=== PATIENT | male | born 1970 | race Caucasian/White ===

== ENCOUNTER 2021-01-16 10:03 | Emergency (ER) | payer OTHER ==
--- NOTE | 2021-01-16 12:08 | ED Physician Documentation ---
History of Present Illness - Stated complaint Stated Complaint: DIZZY - Chief complaint Chief Complaint: Neuro - Additonal information Additional information: 58-year-old male presents the emergency department for evaluation of sudden onset vertigo. He reports waking up in bed this morning and having a very severe sensation of the room spinning it lasted about 15 seconds. He has had this similarly in the past once or twice but has not had formal evaluation or diagnosis of his vertigo. He does report that it is noted often with rotating his head or turning positions. This gentleman has a history of prediabetes and was recently started on Metformin and lisinopril for treatment of this. He has also had a stress test and echocardiogram within the last 6 months completed at [facility] that he reported as normal to this provider. Gentleman denies any chest pain or shortness of air. No vomiting no abdominal pain or diarrhea. No unilateral leg swelling. He is not a smoker. Review of Systems Constitutional: denies: Fever, Chills Eyes: denies: Loss of vision, Decreased vision, Other (nystagmus) Ears: reports: Reviewed and negative Nose: reports: Reviewed and negative Throat: reports: Reviewed and negative Cardiac: reports: Reviewed and negative Respiratory: reports: Reviewed and negative GI: reports: Reviewed and negative : reports: Reviewed and negative Skin: reports: Reviewed and negative Musculoskeletal: reports: Reviewed and negative Neurologic: reports: Other (vertigo). denies: Syncope, Seizure, Headache Psychiatric: reports: Reviewed and negative Endocrine: reports: Reviewed and negative PD PAST MEDICAL HISTORY - Past Medical History Past Medical History: Yes Cardiovascular: Hypertension Respiratory: None Neuro: None Endocrine/Autoimmune: Type 2 diabetes GI: GERD : None HEENT: None Psych: None Musculoskeletal: None Derm: None - Past Surgical History Past Surgical History: No - Present Medications Home Medications: Ambulatory Orders Medication Instructions Recorded Confirmed Meclizine HCl [Antivert] 1 tablet PO Q6H PRN #30 tab 01/16/21 Omeprazole 40 mg PO 01/16/21 lisinopriL [Lisinopril] 10 mg PO 01/16/21 metFORMIN [Glucophage] 500 mg PO DAILY 01/16/21 01/16/21 - Allergies Allergies/Adverse Reactions: Allergies Allergy/AdvReac Type Severity Reaction Status Date / Time bupropion [From Wellbutrin] Allergy Hives Verified 05/27/21 10:19 - Social History Does the pt smoke?: No Smoking Status: Former smoker Does the pt drink ETOH?: Yes Does the pt have substance abuse?: No - Immunizations Immunizations are current?: Yes - POLST Patient has POLST: No PD ED PE EXPANDED - General General: Alert, No acute distress, Well developed/nourished, Other (obese) - HEENT HEENT: Atraumatic, PERRL, Ears normal, Pharynx normal - Eyes Eyes: PERRL, Normal accommodation, Other (Bilateral lateral nystagmus during [place]-Hallpike procedure. Lasted 10 to 15 seconds before abating.) - Cardiac Cardiac: Regular Rate, Radial strong equal, Pedal strong equal, Cap refill < 2 sec. No: Murmur Present - Respiratory Respiratory: Clear to ausultation franck. No: Distress, Labored - Abdomen Abdomen: Normal Bowel sounds. No: Tender to palpation - Derm Derm: Normal color, Warm and dry. No: Petecchiae, Purpura - Extremities Extremities: Normal. No: Deformity, Tenderness - Neuro Neuro: Alert and Oriented X 3, CNII-XII intact, Nystagmus (+ berenice mcclain pike bilaterally), Normal gait, Normal finger nose, Normal speech Results - Vitals Vitals: Vital Signs - 24 hr 01/16/21 01/16/21 10:13 10:59 Temperature 35.9 C L 36.9 C Heart Rate 77 74 Respiratory 16 Rate Blood Pressure 136/83 H 120/78 O2 Saturation 97 Oxygen O2 Source Room air - EKG (time done) 1200 Rate: Rate (enter#) (69) Rhythm: NSR [place]: Normal Intervals: Normal [place] QRS: Normal Ischemia: Normal ST segments Compare to prior EKG: Old EKG unavailable Computer interpretation: Agree with computer - Labs Labs: Laboratory Tests 01/16/21 01/16/21 01/16/21 12:15 12:15 12:15 WBC 7.9 RBC 5.06 Hgb 14.5 Hct 43.4 MCV 85.8 MCH 28.7 MCHC 33.4 RDW 13.5 Plt Count 322 MPV 9.9 Neut # (Auto) 4.4 Lymph # (Auto) 2.7 [place] # (Auto) 0.7 Eos # (Auto) 0.1 Baso # (Auto) 0.0 Absolute Nucleated RBC 0.00 Nucleated RBC % 0.0 Sodium 135 Potassium 4.4 Chloride 99 L Carbon Dioxide 26 Anion Gap 10.0 BUN 18 Creatinine 1.0 Estimated GFR (MDRD) 79 L Glucose 94 Calcium 9.9 Total Bilirubin 0.7 AST 27 ALT 37 Alkaline Phosphatase 56 Troponin I High Sens 2.9 Total Protein 8.5 H Albumin 4.6 Globulin 3.9 Albumin/Globulin Ratio 1.2 Lipase 31 - Rads (name of study) CXR Radiology: Final report received (No acute cardiopulmonary process) PD MEDICAL DECISION MAKING - ED course Complexity details: reviewed results, re-evaluated patient, considered differential, d/w patient ED course: 50-year-old male presents emergency department for evaluation of positional dizziness that he noted this a.m. when he woke up. He has had this 2-3 times similarly in the past. Typically exacerbated when laying flat or turning his head. Today in the emergency department he did have a Berenice-Hallpike that was positive on both sides with brief but fast beating lateral nystagmus. Here in the emergency department we undertook screening EKG which was nonischemic. Screening CBC electrolytes and high-sensitivity troponin are all without worrisome findings. Chest x-ray unremarkable. Vital signs without acute worrisome abnormalities. His neurological exam was negative for any focal findings. He had a normal cerebellar exam and gait. Negative hints exam. Exam and history is consistent with peripheral vertigo. Patient was taught the Michel maneuver to use at home. We will also write a prescription for meclizine. He was advised close follow-up with his primary care provider as if this remains a persistent problem he may benefit from vestibular rehabilitation. Departure - Departure Disposition: 01 Home, Self Care Clinical Impression: Benign paroxysmal positional vertigo due to bilateral vestibular disorder Condition: Stable Record reviewed to determine appropriate education?: Yes Instructions: Vertigo Paroxysmal Positional Prescriptions: Meclizine HCl [Antivert] 1 tablet PO Q6H PRN #30 tab PRN Reason: Vertigo Comments: Ankush I hope that you are feeling better soon. You were seen in the emergency department today for vertigo or dizziness. As we discussed we are able to make you feel dizzy by turning your head and changing positions. Your exam is entirely consistent with positional and peripheral vertigo. When you do have dizziness at home I do recommend that you use the Michel maneuver as discussed. You may also try the meclizine tablets to help with the dizziness. Your screening EKG, chest x-ray and electrolytes today were all essentially unremarkable. Most episodes of positional vertigo resolve with time however if your wrist does not resolve or becomes more frequent you may benefit from vestibular rehabilitation. Please discuss this ED visit with your primary care doctor as soon as possible. Please return to the emergency department for slurred speech, facial droop arm or leg weakness.
[2021-01-16 12:21] LABS: BASOPHILS % (AUTO) 0.5 %; EOSINOPHILS # (AUTO) 0.1 10^3/uL (0.0-0.7); EOSINOPHILS % (AUTO) 1.6 %; HCT - HEMATOCRIT 43.4 % (42.0-52.0); HGB - HEMOGLOBIN 14.5 g/dL (14.0-18.0); LYMPHOCYTES # (AUTO) 2.7 10^3/uL (1.5-3.5); LYMPHOCYTES % (AUTO) 33.8 %; MEAN CORPUSCULAR HEMOGLOBIN 28.7 pg (27.0-31.0); MEAN CORPUSCULAR HGB CONC 33.4 g/dL (32.0-36.0); MEAN CORPUSCULAR VOLUME 85.8 fL (80.0-94.0); MEAN PLATELET VOLUME 9.9 fL (7.4-11.4); MONOCYTES # (AUTO) 0.7 10^3/uL (0.0-1.0); MONOCYTES % (AUTO) 8.2 %; NEUTROPHILS # (AUTO) 4.4 10^3/uL (1.5-6.6); NEUTROPHILS % (AUTO) 55.8 %; PLT - PLATELET COUNT 322 10^3/uL (130-450); RED BLOOD COUNT 5.06 10^6/uL (4.70-6.10); RED CELL DISTRIBUTION WIDTH 13.5 % (12.0-15.0); WHITE BLOOD COUNT 7.9 x10^3/uL (4.8-10.8)
--- NOTE | 2021-01-16 12:30 | XRAY Report ---
PROCEDURE: Chest 1 View X-Ray INDICATIONS: Chest pain TECHNIQUE: One view of the chest was acquired. COMPARISON: None FINDINGS: Surgical changes and devices: None. Lungs and pleura: No pleural effusions or pneumothorax. Lungs are clear. Mediastinum: Mediastinal contours appear normal. Heart size is normal. Bones and chest wall: No suspicious bony lesions. Overlying soft tissues appear unremarkable. IMPRESSION: No acute cardiopulmonary process demonstrated radiographically. Reviewed by: Jesu Flynn MD on 01/16/2021 12:29 PM PDT Approved by: Jesu Flynn MD on 01/16/2021 12:29 PM PDT Station ID: [id number]
[2021-01-16] MEDS ORDERED: MECLIZINE 12.5 MG TABLET PO STA (12:33)
[2021-01-16 12:39] LABS: ALBUMIN 4.6 g/dL (3.2-5.5); ALBUMIN/GLOBULIN RATIO 1.2 (1.0-2.2); BILIRUBIN,TOTAL 0.7 mg/dL (0.2-1.0); CALCIUM 9.9 mg/dL (8.5-10.3); POTASSIUM 4.4 mmol/L (3.5-5.0); TOTAL PROTEIN 8.5 g/dL (6.7-8.2)
[2021-01-16 13:35] VITALS: BP 120/70
== END 2021-01-16 13:34 | disposition home or self-care (01) ==
LOC: ED 10:03
DX: H81.13 Benign paroxysmal vertigo, bilateral (principal); R73.03 Prediabetes; Z79.84 Long term (current) use of oral hypoglycemic drugs; Z87.891 Personal history of nicotine dependence
CPT/HCPCS: 36415; 71045; 80053; 83690; 84484; 85025; 93005; 99283; 99284; A9270

== ENCOUNTER 2021-03-25 12:52 | Outpatient (CLI) | payer OTHER ==
--- NOTE | 2021-03-25 17:21 | XRAY Report ---
PROCEDURE: Lumbar Spine Complete INDICATIONS: LUMBAGO WITH SCIATICA, BACK PX, LUMBOSACRAL, CHRON TECHNIQUE: 5 views of the lumbar spine were acquired. COMPARISON: None. FINDINGS: Bones: 5 [id number] vertebrae are present. Trace retrolisthesis L2 on 3, L4 on 5 and L5 on S1.. No vertebral body compression fractures. No suspicious bony lesions. Oblique images demonstrate no pars defects and mild facet sclerosis on the left at L4-5 and L5-S1. Soft tissues: Overlying bowel gas pattern is normal. No suspicious soft tissue calcifications. IMPRESSION: Mild facet degeneration resulting in mild multilevel spondylolisthesis. Reviewed by: Kendra Ray MD on 03/25/2021 5:20 PM PDT Approved by: Kendra Ray MD on 03/25/2021 5:20 PM PDT Station ID: [id number]
== END 2021-03-25 12:53 | disposition home or self-care (01) ==
LOC: DI.S 12:52
PROVIDERS: ATTEND Physician Assistant
DX: M43.16 Spondylolisthesis, lumbar region (principal); M43.17 Spondylolisthesis, lumbosacral region; M47.816 Spondylosis without myelopathy or radiculopathy, lumbar region

== ENCOUNTER 2021-06-10 12:39 | Day surgery (SDC) | payer OTHER ==
[2021-06-10] MEDS ORDERED: LACTATED RINGERS 1,000 ML IV ONE (13:17)
--- NOTE | 2021-06-10 13:29 | ANESTHESIA ---
Pre-Anesthesia VS, & Labs - Diagnosis GERD - Procedure EGD Vital Signs: Temp Pulse Resp BP Pulse Ox 36.4 C L 70 14 139/83 H 100 06/10/21 12:47 06/10/21 12:47 06/10/21 12:47 06/10/21 12:47 06/10/21 12:47 Height: 5 ft 10 in Weight (kg): 147 kg Body Mass Index: 46.5 BMI Classification: Morbidly Obese - NPO >8 hours - Lab Results Current Lab Results: Laboratory Tests 06/10/21 13:06: POC Whole Bld Glucose 79 Home Medications and Allergies Home Medications: Ambulatory Orders Acetaminophen [Tylenol] 650 mg PO Q6H PRN 06/03/21 Omeprazole 40 mg PO DAILY 01/16/21 lisinopriL [Lisinopril] 10 mg PO DAILY 01/16/21 metFORMIN [Glucophage] 1,000 mg PO DAILY 01/16/21 Acetaminophen [Tylenol] 650 mg PO Q6H PRN 06/03/21 Allergies/Adverse Reactions: Allergies Allergy/AdvReac Type Severity Reaction Status Date / Time bupropion [From Wellbutrin] Allergy Hives Verified 01/16/21 10:19 Anes History & Medical History - Anesthetic History Anesthesia Complications: reports: No previous complications - Medical History Cardiovascular: reports: Hypertension Pulmonary: reports: Sleep apnea, CPAP use Gastrointestinal: reports: GERD Urinary: reports: None Neuro: reports: None Musculoskeletal: reports: Osteoarthritis, Gout Endocrine/Autoimmune: reports: Other Blood Disorders: reports: None Skin: reports: None Smoking Status: Former smoker History of Cancer?: No Exam General: Alert Dental: WNL Mouth Opening: Greater than 4 Fingerbreadths Neck Mobility: Normal Mallampati classification: I Respiratory: Lungs clear Cardiovascular: Regular rate, Normal S1, Normal S2 Plan Anesthesia Type: Total IV Consent for Procedure(s) Verified and Reviewed: Yes Code Status: Attempt Resuscitation ASA classification: 3-Severe systemic disease Is this case an emergency?: No
[2021-06-10] MEDS ORDERED: LIDO GARGLE 30 ML BOTTLE ONE (13:31)
[2021-06-10] MEDS ORDERED: LIDOCAINE-MPF 2% 5 ML VIAL ONE (13:32)
[2021-06-10] MEDS ORDERED: PROPOFOL 500 MG/50 ML 500 MG/50 ML VIAL ONE (13:33)
[2021-06-10] MEDS ORDERED: KETAMINE 500 MG/10 ML VIAL ONE (13:43)
[2021-06-10] MEDS ORDERED: LACTATED RINGERS 500 ML IV ONE (13:59)
[2021-06-10 14:10] VITALS: BP 121/76
--- NOTE | 2021-06-10 14:17 | ANESTHESIA POST OP EVALUATION ---
Anesthesia Post Eval - Post Anesthesia Eval Vitals: Last Vital Signs Temp 36.4 C L 06/10/21 14:09 Pulse 73 06/10/21 14:09 Resp 14 06/10/21 14:09 BP 121/76 06/10/21 14:09 Pulse Ox 96 06/10/21 14:09 CV Function Including HR & BP: Stable Pain Control: Satisfactory Nausea & Vomiting: Negative Mental Status: Baseline Respiratory Status: Airway Patent Hydration Status: Satisfactory Anesthesia Complications: None
== END 2021-06-10 12:40 | disposition home or self-care (01) ==
LOC: SDS 12:39
PROVIDERS: ATTEND Surgery
PROC: 0DB68ZX Excision of Stomach, Via Natural or Artificial Opening Endoscopic, Diagnostic (ICD-10-PCS; 2021-06-10)
PROC: 0DB58ZX Excision of Esophagus, Via Natural or Artificial Opening Endoscopic, Diagnostic (ICD-10-PCS; 2021-06-10)
PROC: 0DB98ZX Excision of Duodenum, Via Natural or Artificial Opening Endoscopic, Diagnostic (ICD-10-PCS; principal; 2021-06-10 13:45)
DX: K21.9 Gastro-esophageal reflux disease without esophagitis (principal); R07.89 Other chest pain; G47.30 Sleep apnea, unspecified; I10 Essential (primary) hypertension; R73.9 Hyperglycemia, unspecified; M54.9 Dorsalgia, unspecified; R11.0 Nausea; E66.01 Morbid (severe) obesity due to excess calories; Z68.42 Body mass index [BMI] 45.0-49.9, adult; Z87.891 Personal history of nicotine dependence; Z79.84 Long term (current) use of oral hypoglycemic drugs
CPT/HCPCS: 43239; A9270; J7120

== ENCOUNTER 2021-06-30 08:00 | Outpatient (CLI) | payer OTHER | END 2021-06-30 23:59 | disposition home or self-care (01) | LOC: LAB.R 08:00 | PROVIDERS: ATTEND Physician Assistant Medical | DX: R21 Rash and other nonspecific skin eruption (principal) | CPT/HCPCS: 81599; 87070; 87205; 87254; 87255 ==

== ENCOUNTER 2021-07-05 07:05 | Outpatient (CLI) | payer OTHER ==
[2021-07-05 07:52] LABS: BASOPHILS # (AUTO) 0.1 10^3/uL (0.0-0.1); BASOPHILS % (AUTO) 0.8 %; EOSINOPHILS # (AUTO) 0.2 10^3/uL (0.0-0.7); EOSINOPHILS % (AUTO) 1.9 %; HCT - HEMATOCRIT 42.6 % (42.0-52.0); HGB - HEMOGLOBIN 13.8 g/dL (14.0-18.0); LYMPHOCYTES % (AUTO) 37.5 %; MEAN CORPUSCULAR HEMOGLOBIN 28.2 pg (27.0-31.0); MEAN CORPUSCULAR HGB CONC 32.4 g/dL (32.0-36.0); MEAN CORPUSCULAR VOLUME 86.9 fL (80.0-94.0); MEAN PLATELET VOLUME 9.7 fL (7.4-11.4); MONOCYTES # (AUTO) 0.5 10^3/uL (0.0-1.0); MONOCYTES % (AUTO) 6.8 %; NEUTROPHILS # (AUTO) 4.2 10^3/uL (1.5-6.6); NEUTROPHILS % (AUTO) 52.5 %; PLT - PLATELET COUNT 352 10^3/uL (130-450); RED CELL DISTRIBUTION WIDTH 12.6 % (12.0-15.0)
[2021-07-05 08:11] LABS: ALBUMIN 4.5 g/dL (3.2-5.5); ALBUMIN/GLOBULIN RATIO 1.2 (1.0-2.2); ALKALINE PHOSPHATASE 60 IU/L (42-121); ALT ALANINE AMINOTRANSFERASE 36 IU/L (10-60); AST ASPARTATE AMINOTRANSFERASE 26 IU/L (10-42); BILIRUBIN,TOTAL 0.4 mg/dL (0.2-1.0); BUN - BLOOD UREA NITROGEN 17 mg/dL (6-20); CALCIUM 9.7 mg/dL (8.5-10.3); CARBON DIOXIDE - CO2 25 mmol/L (21-32); CHLORIDE 104 mmol/L (101-111); CHOL/HDL RATIO 4.2 (<5.0); CHOLESTEROL 155 mg/dL; CREATININE 1.2 mg/dL (0.6-1.2); GFR - MDRD 64 (>89); GLUCOSE 111 mg/dL (70-100); HDL CHOLESTEROL 37 mg/dL; LDL CHOLESTEROL,CALCULATED 100 mg/dL; LDL/HDL RATIO 2.7 (<3.6); POTASSIUM 4.4 mmol/L (3.5-5.0); SODIUM 141 mmol/L (135-145); TOTAL PROTEIN 8.3 g/dL (6.7-8.2); TRIGLYCERIDES 91 mg/dL; VLDL CHOLESTEROL 18 mg/dL
[2021-07-05 12:31] LABS: ESTIMATED AVERAGE GLUCOSE 117 mg/dL (70-100); HEMOGLOBIN A1c% 5.7 % (4.27-6.07)
== END 2021-07-05 07:06 | disposition home or self-care (01) ==
LOC: LAB 07:05
PROVIDERS: ATTEND Internal Medicine
DX: I10 Essential (primary) hypertension (principal); Z13.220 Encounter for screening for lipoid disorders; R73.01 Impaired fasting glucose; Z12.5 Encounter for screening for malignant neoplasm of prostate
CPT/HCPCS: 36415; 80053; 80061; 83036; 83721; 84153; 85025

== ENCOUNTER 2021-08-05 11:57 | Emergency (ER) | payer OTHER | END 2021-08-05 14:20 | disposition left against medical advice (07) | LOC: ED 11:57 | DX: Z53.21 Procedure and treatment not carried out due to patient leaving prior to being seen by health care provider (principal) ==

== ENCOUNTER 2021-08-05 15:30 | Outpatient (CLI) | payer OTHER | END 2021-08-05 23:59 | disposition home or self-care (01) | LOC: LAB.N 15:30 | PROVIDERS: ATTEND Family Medicine | DX: U07.1 COVID-19 (principal) ==

== ENCOUNTER 2021-08-28 08:23 | Outpatient (CLI) | payer OTHER ==
--- NOTE | 2021-08-28 09:22 | SLEEP CARE CONSULTATION ---
Information from patient questionnaire entered by Jossie Yarbrough MA. I have reviewed and concur with the information entered by Jossie Yarbrough MA. This document represents the service I personally performed and the decisions made by , Dorina Delcid ARNP. History of Present Illness Service Date and Time: 08/28/2021 0823 Reason for Visit: New patient, Previously diagnosed sleep apnea, sleep apnea on CPAP therapy, Other (SHORT SLEEP TIMES) Chief Complaint: reports: Other (Short sleep times) Date of Onset: 3 YEARS Usual bedtime: 1999 -2099 Time it takes to fall asleep: MINUTES Snores at night: Yes (not when using device) Observed to quit breathing while asleep: Yes Sleeps alone due to snoring: No Number of times waking at night: RARELY Reasons for waking at night: reports: Pain Toss, Turn, or Twitch while sleeping: Yes Recalls having dreams: No Usually gets out of bed at: 0200 -0300 Feels refreshed in the morning: Yes (its normal, not sure) Morning headache: No Sleepy or fatigued during the day: No Ever fallen asleep while driving: Yes Takes day naps: Yes (SOMETIMES) Dreams during day naps: No Prior sleep studies: Yes Year and Where: 2006? [place] Type of Sleep Study: Polysomnography Additional HPI information: MARLENE MCCOLLUM was previously diagnosed to have unknown, AHI unknown, sleep apnea- hypopnea syndrome and comes in today to establish care for CPAP therapy. - Parasomnia Symptoms Ever been unable to move upon waking from sleep: No Walks in sleep: No Talks in sleep: No Ever acted out dreams in sleep: No Ever felt weak in the knees when startled or emotional: No Bothered by creepy, crawly, restless sensations in legs: No Problems with memory or concentration: No CPAP Compliance Data - Data Reviewed with Patient Average duration of nightly device use: 6 hours 33 minutes Compliance rate %: 98.9 Current pressure setting (cmH2O): 10 Compliance data discussion: He is using a RemStar plus CPAP machine that is 6-7 years old. He uses nasal pillows mask generic of ResHackSurfer AirFit P10. He does have a backup headgear but not mask cushion. He states after he started using the CPAP he had trouble with the financial aspect of paying off his device. He stopped using a [employer] and is getting his supplies online mostly. His Remstar plus did not supply the current residual AHI. Subjective Missed days of use due to: reports: other (power outage) Patient concerns: denies: aerophagia, mask discomfort, air blowing in eyes, mask leak noise, condensation in mask/hose, nasal congestion, dry mouth, nose, throat, epistaxis, other Observed to snore while using device: No Current pressure setting perceived as: comfortable On therapy, patient: reports: sleeping better, awakening more refreshed, being more awake and alert during the day, more rested overall. 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 Patient is and lives in [place]. Cigarettes per day (20/pack): 20 Years of smokin Quit date: 2014 Smoking Pack Years: 30.0 Alcohol use: Yes Alcohol amount and frequency: occassion Caffeine use: Yes Caffeine amount and frequency: 1 x daily Family History Family history of sleep disordered breathing: No Allergies and Home Medications Known drug allergies: Yes (Welbutrin) Drug allergies reviewed: Yes Home medication list reviewed: Yes Allergy and home medication list: Lisinopril Review of Systems Cardiovascular: denies: high blood pressure Respiratory: denies: wheeze Gastrointestinal: denies: heartburn Neurological: denies: gait or balance problems Psychiatric: reports: depression Ear/Nose/Throat: reports: nasal congestion, sinus problems, nose bleeds Musculoskeletal: reports: joint pain, neck pain, back pain. denies: joint swelling Physical Exam Vital signs obtained and entered by: Jessika YARBROUGH CMA AAWINNIE Blood Pressure: 133/82 (left ) Cuff size: wrist Heart Rate: 76 O2 Saturation: 97 (with paper) Height: 5 ft 10 in Weight: 320 lb (with clothes boots) Body Mass Index: 45.9 BMI Classification: Morbidly Obese Heart: regular rate and rhythm Lungs: clear bilaterally Impression and Plan 1. Obstructive Sleep Apnea-Hypopnea Syndrome, unknown, with good treatment compliance and unknown apnea control. On CPAP therapy, the patient has better sleep quality and is more rested overall. Patient states he was he put him on a CPAP with him 45 minutes of his in lab study starting. He has been obtaining his supplies online. He had more issues with not being able to sleep for as long as he used to and comes in just for a checkup to see how he is doing. He was unable to obtain his last sleep study from [place] because it was done he thinks it about 2006. We will need to obtain a sleep study to verify his diagnosis and severity of his sleep apnea. Patient also has a machine that is 67 years old. It is a [employer] REMstar plus that he did check with them and they told him the device was not on the recall. He would like to update his device. We will start with a sleep study and then we can update his device. Patient voiced understanding and agreement with this plan. Patient's apnea severity and rationale for treatment to reduce apnea, improve sleep quality and reduce cardiovascular and cerebrovascular events was reviewed. I also reviewed the benefit of consistent device use of CPAP for hypertension, arrhythmia, gastric reflux and depression. Patient was encouraged to lose weight for their overall health and to reduce apneas. * Continue auto CPAP pressure at 10 cmH2O * Polysomnography/HST to verify diagnosis * Notify me if snoring with mask or feeling that the pressure is too much or too little * Attempt to lose weight * Call this office if any problems using CPAP * Return for follow up after sleep study completed, or sooner if concerns arise Counseling Topics: Spare mask, Weight loss health impact Visit Type: In Office Time Spent with Patient (minutes): 35 Provider Statement: I spent 100% of the Face to Face Visit with the patient with greater than 50% spent counseling the patient and coordination of care.
[2021-08-28 09:23] VITALS: BP 133/82
== END 2021-08-28 08:24 | disposition home or self-care (01) ==
LOC: SC 08:23
PROVIDERS: ATTEND Nurse Practitioner Family
DX: G47.33 Obstructive sleep apnea (adult) (pediatric) (principal); E66.01 Morbid (severe) obesity due to excess calories; Z68.42 Body mass index [BMI] 45.0-49.9, adult
CPT/HCPCS: 99203; 99212

== ENCOUNTER 2021-10-07 07:39 | Outpatient (CLI) | payer OTHER ==
--- NOTE | 2021-10-07 16:40 | XRAY Report ---
PROCEDURE: Knee 4 View RT INDICATIONS: RIGHT KNEE PAIN TECHNIQUE: 4 views of the right knee(s) were acquired. COMPARISON: None. FINDINGS: Bones: No fractures or dislocations. No suspicious bony lesions. There is moderate tricompartmental periarticular osteophyte formation. Soft tissues: No joint effusion. No suspicious soft tissue troy cifications. IMPRESSION: Osteoarthritis. No acute fracture. No osseous lesion. If symptoms and/or clinical suspic ion for pathology continue, further assessment with repeat plain films, or advanced imaging (e.g., CT , MRI, or bone scan) is recommended for further assessment. Reviewed by: Brittany Cabrera MD on 10/07/2021 4:38 PM PST Approved by: Brittany Cabrera MD on 10/07/2021 4:38 PM PST Station ID: [id number]
== END 2021-10-07 07:40 | disposition home or self-care (01) ==
LOC: DI.WOS 07:39
PROVIDERS: ATTEND Physician Assistant
DX: M17.11 Unilateral primary osteoarthritis, right knee (principal)

== ENCOUNTER 2022-02-12 16:54 | Emergency (ER) | payer OTHER ==
--- NOTE | 2022-02-12 17:12 | ED Physician Documentation ---
PD HPI CHEST PAIN - Stated complaint Stated Complaint: chest pain - Chief complaint Chief Complaint: Cardiac - History obtained from History obtained from: Patient - History of Present Illness Timing - onset: How many hours ago (4), Today Timing - onset during: Light activity (He states he was walking up a slight incline and felt his heart started to beat fast and he felt slightly lightheaded. No chest pain per se. This lasted for few minutes and then resolved.) Timing - duration: Minutes Timing - details: Abrupt onset, Now resolved Quality: Tightness Location: Left chest Radiation: No: Jaw, Neck Worsened by: No: Inspiration, Movement Associated symptoms: Palpitations (felt that his heart beat was faster and pounding.) Similar symptoms before: No diagnosis (He states he has had episodes of chest pain in the past with normal ER evaluations and subsequently has had echocardiogram and stress echo with normal findings. Previous diagnosis costochondritis type symptoms.) Recently seen: Clinic (went to [facility] with normal ECG. Referred to ER.) Review of Systems Constitutional: denies: Fever Nose: denies: Rhinorrhea / runny nose, Congestion Throat: denies: Sore throat Respiratory: denies: Cough GI: denies: Abdominal Pain, Nausea, Vomiting Neurologic: denies: Near syncope, Syncope, Altered mental status PD PAST MEDICAL HISTORY - Past Medical History Cardiovascular: Hypertension Respiratory: None Neuro: None Endocrine/Autoimmune: Type 2 diabetes GI: GERD : None HEENT: None Psych: None Musculoskeletal: None Derm: None - Past Surgical History Past Surgical History: No - Present Medications Home Medications: Ambulatory Orders Medication Instructions Recorded Confirmed lisinopriL [Lisinopril] 20 mg PO DAILY 01/16/21 02/12/22 Cholecalciferol [Vitamin D3] 25 mcg PO DAILY 02/12/22 02/12/22 - Allergies Allergies/Adverse Reactions: Allergies Allergy/AdvReac Type Severity Reaction Status Date / Time bupropion [From Wellbutrin] Allergy Hives Verified 02/12/22 17:01 - Social History Does the pt smoke?: No Smoking Status: Former smoker Does the pt drink ETOH?: Yes Does the pt have substance abuse?: No - Immunizations Immunizations are current?: Yes - POLST Patient has POLST: No PD ED PE NORMAL - Vitals Vital signs reviewed: Yes - General General: Alert and oriented X 3, No acute distress, Well developed/nourished - Neck Neck: Supple, no meningeal sign, No adenopathy - Cardiac Cardiac: RRR, No murmur - Respiratory Respiratory: Clear bilaterally, Other (no chestwall tenderness.) - Abdomen Abdomen: Soft, Non tender - Derm Derm: Normal color, Warm and dry - Extremities Extremities: No edema, No calf tenderness / cord - Neuro Neuro: Alert and oriented X 3, No motor deficit, Normal speech Results - Vitals Vitals: Vital Signs - 24 hr 02/12/22 02/12/22 02/12/22 17:01 17:26 18:17 Temperature 36.4 C L 36.5 C Heart Rate 93 86 83 Respiratory 18 18 15 Rate Blood Pressure 145/99 H 133/74 H 126/78 O2 Saturation 97 95 94 Oxygen O2 Source Room air - EKG (time done) 17:03 Rate: Rate (enter#) (90) Rhythm: NSR [place]: Normal Intervals: Normal [place] QRS: Normal Ischemia: Normal ST segments. No: ST elevation c/w ischemia, ST depression - Labs Labs: Laboratory Tests 02/12/22 02/12/22 02/12/22 17:20 17:20 17:20 WBC 9.9 RBC 4.94 Hgb 13.9 L Hct 43.2 MCV 87.4 MCH 28.1 MCHC 32.2 RDW 13.9 Plt Count 327 MPV 9.9 Neut # (Auto) 5.0 Lymph # (Auto) 3.8 [place] # (Auto) 0.8 Eos # (Auto) 0.1 Baso # (Auto) 0.1 Absolute Nucleated RBC 0.00 Nucleated RBC % 0.0 Sodium 137 Potassium 4.2 Chloride 100 L Carbon Dioxide 28 Anion Gap 9.0 BUN 18 Creatinine 1.4 H Estimated GFR (MDRD) 53 L Glucose 100 Calcium 9.7 Total Bilirubin 0.5 AST 28 ALT 34 Alkaline Phosphatase 66 Troponin I High Sens 4.5 Total Protein 8.2 Albumin 4.6 Globulin 3.6 Albumin/Globulin Ratio 1.3 Lipase 28 - Rads (name of study) chest xray Radiology: Prelim report reviewed (normal), See rad report PD MEDICAL DECISION MAKING - ED course Complexity details: reviewed results, considered differential, d/w patient Departure - Departure Disposition: 01 Home, Self Care Clinical Impression: Chest pain Qualifiers: Chest pain type: unspecified Qualified Code(s): R07.9 - Chest pain, unspecified Condition: Stable Record reviewed to determine appropriate education?: Yes Instructions: ED Chest Pain Atypical Unkn Cause Comments: Your EKG, chest x-ray, troponin test as well as blood count electrolytes and kidney function are normal. No signs of a heart injury event with the chest pain this afternoon. Continue usual medicines. Follow-up with your primary care as needed. Use Tylenol every 4 hours if muscular type pains. Discharge Date/Time: 02/12/22 18:17
[2022-02-12 17:29] LABS: BASOPHILS # (AUTO) 0.1 10^3/uL (0.0-0.1); BASOPHILS % (AUTO) 0.7 %; EOSINOPHILS # (AUTO) 0.1 10^3/uL (0.0-0.7); EOSINOPHILS % (AUTO) 1.4 %; HCT - HEMATOCRIT 43.2 % (42.0-52.0); HGB - HEMOGLOBIN 13.9 g/dL (14.0-18.0); LYMPHOCYTES # (AUTO) 3.8 10^3/uL (1.5-3.5); LYMPHOCYTES % (AUTO) 38.3 %; MEAN CORPUSCULAR HEMOGLOBIN 28.1 pg (27.0-31.0); MEAN CORPUSCULAR HGB CONC 32.2 g/dL (32.0-36.0); MEAN CORPUSCULAR VOLUME 87.4 fL (80.0-94.0); MEAN PLATELET VOLUME 9.9 fL (7.4-11.4); MONOCYTES # (AUTO) 0.8 10^3/uL (0.0-1.0); MONOCYTES % (AUTO) 8.5 %; NEUTROPHILS % (AUTO) 50.9 %; PLT - PLATELET COUNT 327 10^3/uL (130-450); RED BLOOD COUNT 4.94 10^6/uL (4.70-6.10); RED CELL DISTRIBUTION WIDTH 13.9 % (12.0-15.0); WHITE BLOOD COUNT 9.9 x10^3/uL (4.8-10.8)
--- NOTE | 2022-02-12 17:36 | XRAY Report ---
PROCEDURE: Chest 1 View X-Ray INDICATIONS: Chest Pain TECHNIQUE: One view of the chest was acquired. COMPARISON: 01/16/2021 FINDINGS: Surgical changes and devices: None. Lungs and pleura: No pleural effusions or pneumothorax. Lungs are clear. Mediastinum: Mediastinal contours appear normal. Heart size is normal. Bones and chest wall: No suspicious bony lesions. Overlying soft tissues appear unremarkable. IMPRESSION: No acute process. Reviewed by: Brittany Cabrera MD on 02/12/2022 5:35 PM PDT Approved by: Brittany Cabrera MD on 02/12/2022 5:35 PM PDT Station ID: [id number]
[2022-02-12 17:45] LABS: ALBUMIN 4.6 g/dL (3.2-5.5); ALBUMIN/GLOBULIN RATIO 1.3 (1.0-2.2); BILIRUBIN,TOTAL 0.5 mg/dL (0.2-1.0); CALCIUM 9.7 mg/dL (8.5-10.3); CREATININE 1.4 mg/dL (0.6-1.2); POTASSIUM 4.2 mmol/L (3.5-5.0); TOTAL PROTEIN 8.2 g/dL (6.7-8.2)
[2022-02-12 18:18] VITALS: BP 126/78
== END 2022-02-12 18:17 | disposition home or self-care (01) ==
LOC: ED 16:54
DX: R07.9 Chest pain, unspecified (principal); I10 Essential (primary) hypertension; Z87.891 Personal history of nicotine dependence
CPT/HCPCS: 36415; 80053; 83690; 84484; 85025; 93005; 99284

== ENCOUNTER 2022-06-01 14:43 | Outpatient (CLI) | payer OTHER ==
[2022-06-01 12:01] LABS: BASOPHILS % (AUTO) 0.6 %; EOSINOPHILS # (AUTO) 0.1 10^3/uL (0.0-0.7); EOSINOPHILS % (AUTO) 1.7 %; HCT - HEMATOCRIT 44.8 % (42.0-52.0); HGB - HEMOGLOBIN 14.6 g/dL (14.0-18.0); LYMPHOCYTES # (AUTO) 2.9 10^3/uL (1.5-3.5); LYMPHOCYTES % (AUTO) 40.3 %; MEAN CORPUSCULAR HEMOGLOBIN 28.1 pg (27.0-31.0); MEAN CORPUSCULAR HGB CONC 32.6 g/dL (32.0-36.0); MEAN CORPUSCULAR VOLUME 86.2 fL (80.0-94.0); MEAN PLATELET VOLUME 10.8 fL (7.4-11.4); MONOCYTES # (AUTO) 0.5 10^3/uL (0.0-1.0); MONOCYTES % (AUTO) 6.2 %; NEUTROPHILS # (AUTO) 3.7 10^3/uL (1.5-6.6); NEUTROPHILS % (AUTO) 50.9 %; PLT - PLATELET COUNT 321 10^3/uL (130-450); RED CELL DISTRIBUTION WIDTH 13.7 % (12.0-15.0); WHITE BLOOD COUNT 7.2 x10^3/uL (4.8-10.8)
[2022-06-01 12:23] LABS: ALBUMIN 4.3 g/dL (3.2-5.5); BILIRUBIN,TOTAL 0.3 mg/dL (0.2-1.0); CALCIUM 9.3 mg/dL (8.5-10.3); CREATININE 1.1 mg/dL (0.6-1.2); TOTAL PROTEIN 8.4 g/dL (6.7-8.2)
[2022-06-01 15:07] LABS: H. PYLORIS ANTIGEN STL NEGATIVE (Negative)
[2022-06-03 12:10] LABS: GIARDIA LAMBLIA AG EIA Negative (Negative)
== END 2022-06-01 14:44 | disposition home or self-care (01) ==
LOC: LAB.N 14:43
PROVIDERS: ATTEND Registered Nurse
DX: R19.7 Diarrhea, unspecified (principal)
CPT/HCPCS: 36415; 80053; 83690; 85025; 87045; 87046; 87177; 87329; 87338; 87427

== ENCOUNTER 2022-11-13 18:16 | Emergency (ER) | payer BC, OTHER ==
[2022-11-13 18:48] LABS: BASOPHILS # (AUTO) 0.1 10^3/uL (0.0-0.1); BASOPHILS % (AUTO) 0.8 %; EOSINOPHILS # (AUTO) 0.2 10^3/uL (0.0-0.7); EOSINOPHILS % (AUTO) 2.2 %; HCT - HEMATOCRIT 43.7 % (42.0-52.0); HGB - HEMOGLOBIN 13.9 g/dL (14.0-18.0); LYMPHOCYTES # (AUTO) 4.2 10^3/uL (1.5-3.5); LYMPHOCYTES % (AUTO) 40.9 %; MEAN CORPUSCULAR HEMOGLOBIN 27.5 pg (27.0-31.0); MEAN CORPUSCULAR HGB CONC 31.8 g/dL (32.0-36.0); MEAN CORPUSCULAR VOLUME 86.4 fL (80.0-94.0); MONOCYTES # (AUTO) 1.1 10^3/uL (0.0-1.0); MONOCYTES % (AUTO) 10.4 %; NEUTROPHILS # (AUTO) 4.6 10^3/uL (1.5-6.6); NEUTROPHILS % (AUTO) 45.4 %; PLT - PLATELET COUNT 315 10^3/uL (130-450); RED BLOOD COUNT 5.06 10^6/uL (4.70-6.10); RED CELL DISTRIBUTION WIDTH 13.7 % (12.0-15.0); WHITE BLOOD COUNT 10.2 x10^3/uL (4.8-10.8)
--- NOTE | 2022-11-13 19:00 | XRAY Report ---
PROCEDURE: Chest 1 View X-Ray INDICATIONS: Chest pain TECHNIQUE: One view of the chest was acquired. COMPARISON: 02/12/2022, 01/16/2021 FINDINGS: Surgical changes and devices: None. Lungs and pleura: No pleural effusions or pneumothorax. Lungs are clear. Mediastinum: Mediastinal contours appear normal. Heart size is normal. Bones and chest wall: No suspicious bony lesions. Overlying soft tissues appear unremarkable. IMPRESSION: Portable chest study within normal limits. Reviewed by: Osmin Beard MD on 11/13/2022 5:59 PM AKELVA Approved by: Osmin Beard MD on 11/13/2022 5:59 PM MONICA Station ID: [id number]
[2022-11-13 19:02] LABS: ALBUMIN 4.6 g/dL (3.2-5.5); ALBUMIN/GLOBULIN RATIO 1.2 (1.0-2.2); BILIRUBIN,TOTAL 0.6 mg/dL (0.2-1.0); CALCIUM 9.6 mg/dL (8.5-10.3); CREATININE 1.2 mg/dL (0.6-1.2); TOTAL PROTEIN 8.3 g/dL (6.7-8.2)
--- NOTE | 2022-11-13 19:23 | ED Physician Documentation ---
PD HPI ABD PAIN - Stated complaint Stated Complaint: SOA,CHEST PX - Chief complaint Chief Complaint: Cardiac - History obtained from History obtained from: Patient - Additional information Additional information: 51-year-old gentleman with a history of obesity, hypertension. He has had ongoing problems with chest pains and flutters for many many years. He has had thorough work-ups including echo, at least 1 and probably 2 stress tests most recently 2 years ago. He is also had an upper endoscopy showing lower esophageal sphincter that was incompetent. He presents today because he still has his ongoing anterior chest wall fluttering but now over the last few days has had some shortness of breath with more pain in the right upper quadrant. He does think he gets worse after eating. PD PAST MEDICAL HISTORY - Past Medical History Cardiovascular: Hypertension Respiratory: None Neuro: None Endocrine/Autoimmune: Type 2 diabetes GI: GERD : None HEENT: None Psych: None Musculoskeletal: None Derm: None - Past Surgical History Past Surgical History: No - Present Medications Home Medications: Ambulatory Orders Medication Instructions Recorded Confirmed lisinopriL [Lisinopril] 20 mg PO DAILY 01/16/21 02/12/22 Cholecalciferol [Vitamin D3] 25 mcg PO DAILY 02/12/22 02/12/22 - Allergies Allergies/Adverse Reactions: Allergies Allergy/AdvReac Type Severity Reaction Status Date / Time bupropion [From Wellbutrin] Allergy Hives Verified 11/13/22 18:37 - Social History Does the pt smoke?: No Smoking Status: Former smoker Does the pt drink ETOH?: Yes Does the pt have substance abuse?: No - Immunizations Immunizations are current?: Yes - POLST Patient has POLST: No PD ED PE NORMAL - Vitals Vital signs reviewed: Yes - General General: Alert and oriented X 3, No acute distress - Neck Neck: Supple, no meningeal sign, No bony TTP - Cardiac Cardiac: RRR, No murmur - Respiratory Respiratory: No respiratory distress, Clear bilaterally - Abdomen Abdomen: Other (Tender in the right upper quadrant without surgical signs) - Derm Derm: Normal color, Warm and dry - Extremities Extremities: No edema, No calf tenderness / cord - Neuro Neuro: Alert and oriented X 3, Normal speech Results - Vitals Vitals: Vital Signs - 24 hr 11/13/22 11/13/22 18:25 20:01 Temperature 36.6 C Heart Rate 87 84 Respiratory 18 22 Rate Blood Pressure 151/79 H 122/80 O2 Saturation 96 96 Oxygen O2 Source Room air - EKG (time done) 1832 EKG releavant findings:: EKG personally interpreted by author of this note. Relevant findings are: Rate: Rate (enter#) (88) Rhythm: NSR [place]: Normal Intervals: Normal [place] QRS: Normal Ischemia: Normal ST segments - Labs Labs: Laboratory Tests 11/13/22 11/13/22 11/13/22 18:43 18:43 18:43 WBC 10.2 RBC 5.06 Hgb 13.9 L Hct 43.7 MCV 86.4 MCH 27.5 MCHC 31.8 L RDW 13.7 Plt Count 315 MPV 10.0 Neut # (Auto) 4.6 Lymph # (Auto) 4.2 H [place] # (Auto) 1.1 H Eos # (Auto) 0.2 Baso # (Auto) 0.1 Absolute Nucleated RBC 0.00 Nucleated RBC % 0.0 Sodium 139 Potassium 4.0 Chloride 104 Carbon Dioxide 26 Anion Gap 9.0 BUN 15 Creatinine 1.2 Estimated GFR (MDRD) 64 L Glucose 91 Calcium 9.6 Total Bilirubin 0.6 AST 27 ALT 42 Alkaline Phosphatase 56 Troponin I High Sens 4.3 Total Protein 8.3 H Albumin 4.6 Globulin 3.7 Albumin/Globulin Ratio 1.2 Lipase 31 - Rads (name of study) Single view chest x-ray is normal/unremarkable Relevant Findings:: Final report received, EMP independent interpretation of test PD Medical Decision Making - ED course ED course: 51-year-old gentleman who basically has chronic recurrent chest pain. On further history he states it started after doing vigorous power cleans many years ago and ever since it feels like his ribs and sternum are out of place. It did change a bit now and is in the right upper quadrant. He has had multiple repeated work-ups for this without pertinent positive findings. Given the radiation to the right upper quadrant today we also did a ultrasound of his gallbladder which was negative except for hepatic steatosis. His CBC is reviewed and normal. CMP reviewed and normal. Troponin reviewed and negative. Departure - Departure Disposition: 01 Home, Self Care Clinical Impression: Chest wall pain Condition: Good Record reviewed to determine appropriate education?: Yes Instructions: ED Chest Pain Atypical Unkn Cause Comments: You were seen today for an exacerbation of ongoing chest pain but this time with some different radiation to the right upper quadrant of the abdomen. We did a chest x-ray which was normal. An EKG was normal. Basic blood work normal, troponin negative, and a right quadrant ultrasound which was normal/negative with the exception of a fatty liver. Call your doctor to arrange a follow-up appointment, make the next available appointment. In the interim, return anytime if worse or if new symptoms develop.
[2022-11-13 21:20] VITALS: BP 136/77
--- NOTE | 2022-11-13 21:53 | Ultrasound Report ---
PROCEDURE: Abdomen Limited INDICATIONS: Right upper quadrant pain TECHNIQUE: Real-time focused scanning was performed of the abdomen, with image documentation. COMPARISON: None. FINDINGS: Liver: Liver is normal in size without focal hepatic lesions identified. There is increased echogenic ity compatible with fatty infiltration. Gallbladder: Gallbladder demonstrates no stones, wall thickening, or pericholecystic fluid. Biliary ducts: No definite intrahepatic or extrahepatic biliary ductal dilatation. Common hepatic joceline t was not well seen. Pancreas: The visualized pancreas appears unremarkable sonographically. Right kidney: Right kidney measures [11.4] . No hydronephrosis. IMPRESSION: 1. No evidence of cholelithiasis or cholecystitis. 2. Increased hepatic echogenicity compatible with steatosis. Reviewed by: Chris Zapata MD on 11/13/2022 9:52 PM PDT Approved by: Chris Zapata MD on 11/13/2022 9:52 PM PDT Station ID: [id number]
== END 2022-11-13 21:16 | disposition home or self-care (01) ==
LOC: ED 18:16
DX: R07.89 Other chest pain (principal); I10 Essential (primary) hypertension; Z87.891 Personal history of nicotine dependence
CPT/HCPCS: 36415; 80053; 83690; 84484; 85025; 93005; 99283; 99284

== ENCOUNTER 2023-02-18 08:00 | Outpatient (CLI) | payer BC, OTHER ==
--- NOTE | 2023-02-18 19:00 | XRAY Report ---
PROCEDURE: Knee 4 View RT INDICATIONS: RIGHT KNEE INTERNAL DERANGEMENT TECHNIQUE: 4 views of the right knee(s) were acquired. COMPARISON: None. FINDINGS: Bones: No acute fractures or dislocations. No suspicious bony lesions. Moderate tricompartmental degenerative changes with prominent marginal osteophyte formation. Soft tissues: Small knee joint effusion. No suspicious soft tissue calcifications or masses. IMPRESSION: No acute bony abnormality. Moderate tricompartmental osteoarthrosis of the right knee with small join t effusion. If there is continued clinical concern for internal soft tissue derangement, consider further evalua tion with MRI. Reviewed by: Abhi Koch MD on 02/18/2023 6:59 PM PDT Approved by: Abhi Koch MD on 02/18/2023 6:59 PM PDT Station ID: [id number]
== END 2023-02-18 23:59 | disposition home or self-care (01) ==
LOC: DI.S 08:00
PROVIDERS: ATTEND Physician Assistant
DX: M23.91 Unspecified internal derangement of right knee (principal); M17.11 Unilateral primary osteoarthritis, right knee; M25.461 Effusion, right knee

== ENCOUNTER 2023-07-15 07:00 | Outpatient (CLI) | payer BC ==
--- NOTE | 2023-07-15 12:54 | XRAY Report ---
PROCEDURE: Cervical Spine 2 View INDICATIONS: NECK PAIN TECHNIQUE: 4 view(s) of the cervical spine were acquired. COMPARISON: None. FINDINGS: Bones: No fractures or dislocations to the C7-T1 level. Straightening of normal cervical lordosis is seen. Degenerative endplate changes are noted at C5-6 and C6-7 levels with prominent anterior and do rsal disc osteophyte complex formation. The lateral masses of C1 appear intact on the odontoid view. No suspicious bony lesions. Soft tissues: No prevertebral soft tissue swelling. IMPRESSION: Degenerative disc disease in lower cervical spine. No fracture or dislocation. Reviewed by: Iglesia Falcon MD on 07/15/2023 12:53 PM PST Approved by: Iglesia Falcon MD on 07/15/2023 12:53 PM PST Station ID: [id number]
== END 2023-07-15 23:59 | disposition home or self-care (01) ==
LOC: DI.S 07:00
PROVIDERS: ATTEND Registered Nurse
DX: M50.322 Other cervical disc degeneration at C5-C6 level (principal)